=== PATIENT | female | born 1970 | race Caucasian/White ===

== ENCOUNTER 2016-06-11 10:04 | Day surgery (SDC) | payer OTHER ==
[~2016-06-11 10:04] MED LIST: LACTATED RINGERS 1,000 ML IV SCH
[2016-06-11] MEDS ORDERED: IV START KIT ONE (10:11)
[2016-06-11] MEDS ORDERED: LACTATED RINGERS 1,000 ML ONE (10:11)
[2016-06-11] MEDS ORDERED: PROPOFOL 40 ML IV ONE (12:03)
--- NOTE | 2016-06-15 14:31 | SURGPATH ---
[facility] [address] [place] [id number] Patient Name: SARAH FITZGERALD MR#: [id number] : 1970 Gender: F Specimen #: [id number] Collected: 06/11/2016 Received: 06/14/2016 Reported: 06/15/2016 Submitting Phys: KATE MCCARTHY Copy To Phys: [facility] NAYAN JAMES Clinical History / Pre-Operative Diagnosis: HISTORY OF POLYPECTOMIES Specimen Source / Surgical Procedure Performed: #1-SPLENIC FLEXURE POLYP; #2-SIGMOID POLYP AT 30 CM Interpretation: 1. COLON, SPLENIC FLEXURE, POLYP, POLYPECTOMY: - TUBULAR ADENOMA 2. COLON, SIGMOID AT 30 CM, POLYP, POLYPECTOMY: - COLONIC MUCOSA WITH EXPANDED BENIGN SMOOTH MUSCLE, CONSISTENT WITH SUBMUCOSAL LEIOMYOMA (SEE COMMENT) Comment: Clinical and endoscopic correIation is recommended. Electronically Signed Out Aida Prater M.D. Gross Description: #1 The specimen is received in a formalin filled container labeled with the patient's name and "splenic flexure polyp". A polypoid dark pink-gómez biopsy is 0.5 x 0.4 x 0.3 cm. Bisected. Totally embedded in cassette #1. #2 The specimen is received in a formalin filled container labeled with the patient's name and "sigmoid polyp at 30 cm". Two gómez biopsies are 0.2 and 0.4 cm. Totally embedded in cassette #2. Edinson Jimenez Microscopic Description: Part 1: A single fragment of colonic mucosa is seen with crowded glands lined by hyperchromatic nuclei. No high-grade dysplasia or carcinoma is seen. A small fragment of cauterized benign colonic epithelium is also seen. Part 2: Two cauterized fragments of colonic mucosa are seen without adenomatous change. On deeper levels, the submucosal smooth muscle appears hypertrophic and sharply delimited from the overlying lamina propria. No malignant features are seen. 1: [id number] 2: 60949 D12.3 D12.5
== END 2016-06-11 12:36 | disposition home or self-care (01) ==
LOC: SDC 10:04
PROVIDERS: ATTEND Internal Medicine Gastroenterology
PROC: 0DBN8ZX Excision of Sigmoid Colon, Via Natural or Artificial Opening Endoscopic, Diagnostic (ICD-10-PCS; principal; 2016-06-11)
PROC: 0DBL8ZX Excision of Transverse Colon, Via Natural or Artificial Opening Endoscopic, Diagnostic (ICD-10-PCS; 2016-06-11)
DX: Z12.11 Encounter for screening for malignant neoplasm of colon (principal); D12.5 Benign neoplasm of sigmoid colon; D12.3 Benign neoplasm of transverse colon; Z86.010 Personal history of colon polyps; Z80.0 Family history of malignant neoplasm of digestive organs
CPT/HCPCS: 45385; J7120